=== PATIENT | female | born 1930 | race African-American/Black ===

== ENCOUNTER 2020-07-11 11:33 | Inpatient (IN) | payer MEDICARE ==
[~2020-07-11] VITALS: Ht 160 cm; Wt 41.7 kg
[2020-07-11] MEDS ORDERED: ONDANSETRON HCL 4MG/2ML INJ IV ONE (12:00)
[2020-07-11 12:14] LABS: HEMATOCRIT. 44.6 % (36.0-48.0); HEMOGLOBIN. 14.9 g/dL (12.0-16.0); MEAN CORPUSCULAR HEMOGLOBIN 26.7 pg (28.0-32.0); MEAN CORPUSCULAR VOLUME 80.2 fL (81.0-99.0); MEAN PLATELET VOLUME 8.8 fl (7.4-10.4); PLATELET 235 x1000/uL (130-400); RED BLOOD CELL COUNT 5.56 mill/uL (4.2-5.4); RED CELL DISTRIBUTION WIDTH 15.2 % (11.6-14.6)
[2020-07-11 12:18] LABS: CHLORIDE 99 mEq/L (98-107)
[2020-07-11 12:21] LABS: INR 1.1; PROTHROMBIN TIME 11.8 sec (9.6-11.0)
[2020-07-11] MEDS ORDERED: BARIUM SULFATE(VOLUMEN) 450 ML ORAL.SUSP ONE (12:27)
[2020-07-11 13:00] LABS: PLATELET ESTIMATE NORMAL
[2020-07-11] MEDS ORDERED: DEXT 5%/0.45% NACL 1000ML 1,000 ML IV SCH (13:15)
[2020-07-11] MEDS ORDERED: ONDANSETRON HCL 4MG/2ML INJ IV PRN (13:15)
[2020-07-11] MEDS: IPRATROPIUM/ALBUTEROL 0.5-3(2.5)MG/3ML NEB HHN SCH ×3 (13:30→21:22)
[2020-07-11 15:00] VITALS: BP_SYST 169; BP_DIAS 91; BP_DIAS 96
[2020-07-11 15:16] LABS: CLARITY URINE CLEAR (CLEAR); COLOR URINE YELLOW (YELLOW); KETONES URINE NEGATIVE (NEGATIVE); LEUKOCYTE ESTERASE URINE NEGATIVE (NEGATIVE); NITRITE URINE NEGATIVE (NEGATIVE); OCCULT BLOOD URINE NEGATIVE (NEGATIVE); PROTEIN URINE TRACE (NEGATIVE); SPECIFIC GRAVITY URINE 1.015 (1.005-1.030)
[2020-07-11] MEDS ORDERED: NA PHOS,M-B/NA PHOS,DI-BA ENEMA 118ML PR NR (17:00)
[2020-07-11] MEDS: LIDOCAINE 5% PATCH TOP SCH (17:00)
[2020-07-11] MEDS ORDERED: KETOROLAC 15MG/ML VIAL IV PRN (17:00)
[2020-07-11] MEDS ORDERED: LACTULOSE 20G/30ML UDC PO NR (17:00)
[2020-07-11] MEDS ORDERED: BISACODYL 5MG TABLET PO PRN (17:00)
[2020-07-11] MEDS ORDERED: ATROV IH (17:06)
[2020-07-11] MEDS ORDERED: ACET-2708 MT (17:06)
[2020-07-11] MEDS ORDERED: BUDE6.9H INH (17:06)
[2020-07-11] MEDS ORDERED: [UNRECOGNIZED DRUG - CODE] PO (17:06)
[2020-07-11] MEDS ORDERED: DICL100G31 TP (17:06)
[2020-07-11] MEDS: ACETAMINOPHEN 325MG TABLET PO PRN (17:22)
[2020-07-11] MEDS ORDERED: SORBITOL 70% SOLN 30ML PO NR (19:45)
[2020-07-11 20:00] VITALS: BP 147/79
[2020-07-11] MEDS: SODIUM CHLORIDE 0.9% INJ 3ML FLUSH IVF SCH ×2 (21:15→21:34)
[2020-07-11] MEDS: DEXT 5%/0.9% NACL 1,000 ML IV SCH (21:15)
[2020-07-12] VITALS: BP 147/79
[2020-07-12] MEDS: IPRATROPIUM/ALBUTEROL 0.5-3(2.5)MG/3ML NEB HHN SCH ×6 (01:00→21:12)
[2020-07-12] MEDS: ACETAMINOPHEN 325MG TABLET PO PRN ×3 (03:48→21:27)
[2020-07-12 04:00] VITALS: BP 114/90
[2020-07-12] MEDS ORDERED: SORBITOL 70% SOLN 30ML PO NR (06:00)
[2020-07-12] MEDS: SODIUM CHLORIDE 0.9% INJ 3ML FLUSH IVF SCH ×3 (06:15→21:27)
[2020-07-12 07:03] LABS: HEMATOCRIT. 40.1 % (36.0-48.0); HEMOGLOBIN. 13.5 g/dL (12.0-16.0); MEAN CORPUSCULAR HEMOGLOBIN 26.8 pg (28.0-32.0); MEAN CORPUSCULAR VOLUME 79.5 fL (81.0-99.0); MEAN PLATELET VOLUME 9.3 fl (7.4-10.4); PLATELET 202 x1000/uL (130-400); RED BLOOD CELL COUNT 5.05 mill/uL (4.2-5.4); RED CELL DISTRIBUTION WIDTH 15.4 % (11.6-14.6)
[2020-07-12 07:15] LABS: PHOSPHORUS 3.1 mg/dL (2.5-4.9)
[2020-07-12 08:00] VITALS: BP 138/75
[2020-07-12 08:51] LABS: CHLORIDE 99 mEq/L (98-107)
[2020-07-12] MEDS: LIDOCAINE 5% PATCH TOP SCH (09:00)
[2020-07-12] MEDS: POLYETHYLENE GLYCOL 3350 (17GM) 1 DOSE PACK PO SCH (09:44)
[2020-07-12 12:00] VITALS: BP_SYST 134; BP_SYST 99; BP_DIAS 52; BP_DIAS 68
[2020-07-12] MEDS: DEXT 5%/0.9% NACL 1,000 ML IV SCH (13:09)
[2020-07-12] MEDS ORDERED: SORBITOL 70% SOLN 30ML PO PRN (14:45)
[2020-07-12 16:00] VITALS: BP 153/86
[2020-07-12 17:45] LABS: PLATELET ESTIMATE NORMAL
[2020-07-12 20:00] VITALS: BP 146/73
[2020-07-13] VITALS: BP 133/65
[2020-07-13] MEDS: IPRATROPIUM/ALBUTEROL 0.5-3(2.5)MG/3ML NEB HHN SCH ×6 (01:26→21:56)
[2020-07-13] MEDS: ACETAMINOPHEN 325MG TABLET PO PRN ×3 (03:30→18:34)
[2020-07-13 04:00] VITALS: BP 131/68
[2020-07-13] MEDS: SODIUM CHLORIDE 0.9% INJ 3ML FLUSH IVF SCH ×3 (06:00→21:18)
[2020-07-13 07:04] LABS: BASOPHILS % 0.1 % (0.0-2.0); CHLORIDE 97 mEq/L (98-107); EOSINOPHILS % 0.3 % (0.0-5.0); HEMOGLOBIN. 13.1 g/dL (12.0-16.0); LYMPHOCYTES % 7.1 % (20.0-50.0); MEAN CORPUSCULAR HEMOGLOBIN 26.7 pg (28.0-32.0); MEAN CORPUSCULAR VOLUME 79.3 fL (81.0-99.0); MEAN PLATELET VOLUME 8.9 fl (7.4-10.4); MONOCYTES % 10.4 % (2.0-8.0); NEUTROPHILS % 82.1 % (40.0-76.0); PLATELET 200 x1000/uL (130-400); RED BLOOD CELL COUNT 4.92 mill/uL (4.2-5.4); RED CELL DISTRIBUTION WIDTH 15.2 % (11.6-14.6)
[2020-07-13 08:00] VITALS: BP 157/80
[2020-07-13] MEDS ORDERED: ENOXAPARIN 30MG/0.3ML SYR SUBCUT SCH (09:00)
[2020-07-13] MEDS: POLYETHYLENE GLYCOL 3350 (17GM) 1 DOSE PACK PO SCH (09:00)
[2020-07-13] MEDS: DEXT 5%/0.9% NACL 1,000 ML IV SCH (09:23)
[2020-07-13] MEDS ORDERED: GADOTERATE MEGLUMINE 5 MMOL/10 ML VIAL IV ONE (10:50)
[2020-07-13 12:00] VITALS: BP 142/64
[2020-07-13 12:10] LABS: BG BASE EXCESS 3.9 mmol/L (-2.0-2.0); BG CARBOXYHEMOGLOBIN 0.9 % (0.5-1.5); BG FRACTION INSPIRED OXYGEN 32; BG HCO3 ACT 29.9 mmol/L (22.0-26.0); BG METHEMOGLOBIN 0.3 % (0.0-1.5); BG OXYHEMOGLOBIN 97.8 % (94.0-97.0); BG PCO2 50.7 mmHg (35.0-45.0); BG PH 7.389 (7.350-7.450); BG PO2 166.2 mmHg (75.0-100.0); BG SAMPLE SITE RIGHT RADIAL; BG TOTAL HEMOGLOBIN 13.8 g/dL (12.0-18.0); BG VENT MODE NASAL CANNULA
[2020-07-13] MEDS: BUDESONIDE 0.5MG/2ML NEB HHN SCH ×2 (12:15→21:55)
[2020-07-13] MEDS ORDERED: IOHEXOL-300 100 ML BOTTLE ONE (14:34)
[2020-07-13 16:00] VITALS: BP 147/83
[2020-07-13 20:00] VITALS: BP 139/72
[2020-07-14] VITALS: BP 129/80
[2020-07-14] MEDS: ACETAMINOPHEN 325MG TABLET PO PRN ×3 (01:04→23:00)
[2020-07-14] MEDS: POLYVINYL ALCOHOL OPHTH DROPS 15ML BOTHEYE SCH ×4 (01:18→18:00)
[2020-07-14 04:00] VITALS: BP 118/70
[2020-07-14] MEDS: IPRATROPIUM/ALBUTEROL 0.5-3(2.5)MG/3ML NEB HHN SCH ×5 (04:00→21:10)
[2020-07-14] MEDS: DEXT 5%/0.9% NACL 1,000 ML IV SCH (05:24)
[2020-07-14] MEDS: DORZOLAMIDE 2% OPHTH 10 ML BOTTLE BOTHEYE SCH ×4 (05:25→21:23)
[2020-07-14] MEDS: SODIUM CHLORIDE 0.9% INJ 3ML FLUSH IVF SCH ×3 (05:25→21:23)
[2020-07-14 06:57] LABS: BASOPHILS % 0.2 % (0.0-2.0); EOSINOPHILS % 0.4 % (0.0-5.0); MEAN CORPUSCULAR HEMOGLOBIN 26.5 pg (28.0-32.0); MEAN CORPUSCULAR VOLUME 79.5 fL (81.0-99.0); MEAN PLATELET VOLUME 9.2 fl (7.4-10.4); MONOCYTES % 10.6 % (2.0-8.0); NEUTROPHILS % 80.8 % (40.0-76.0); PLATELET 219 x1000/uL (130-400); RED BLOOD CELL COUNT 4.91 mill/uL (4.2-5.4); RED CELL DISTRIBUTION WIDTH 15.2 % (11.6-14.6)
[2020-07-14 07:00] LABS: CHLORIDE 100 mEq/L (98-107)
[2020-07-14] MEDS: BUDESONIDE 0.5MG/2ML NEB HHN SCH ×2 (07:12→21:10)
[2020-07-14 08:33] VITALS: BP 153/72
[2020-07-14] MEDS: POLYETHYLENE GLYCOL 3350 (17GM) 1 DOSE PACK PO SCH (09:00)
[2020-07-14 12:12] VITALS: BP 137/79
[2020-07-14 15:48] VITALS: BP 130/69
[2020-07-14] MEDS ORDERED: MAGNESIUM/ALUMINUM HYDROXIDE/SIMETHICONE 30ML UDC PO PRN (19:45)
[2020-07-14] MEDS ORDERED: SIMETHICONE 80MG TABLET CHEW PO PRN (19:45)
[2020-07-14 20:00] VITALS: BP 128/70
[2020-07-15] VITALS (22 sets, daily range): BP systolic 115–151; BP diastolic 36–87
[2020-07-15] MEDS: DEXT 5%/0.9% NACL 1,000 ML IV SCH ×2 (01:05→21:25)
[2020-07-15] MEDS: POLYVINYL ALCOHOL OPHTH DROPS 15ML BOTHEYE SCH ×5 (01:09→23:07)
[2020-07-15] MEDS: IPRATROPIUM/ALBUTEROL 0.5-3(2.5)MG/3ML NEB HHN SCH ×3 (05:01→21:13)
[2020-07-15] MEDS: SODIUM CHLORIDE 0.9% INJ 3ML FLUSH IVF SCH ×3 (05:34→22:00)
[2020-07-15 07:02] LABS: BASOPHILS % 0.4 % (0.0-2.0); EOSINOPHILS % 0.5 % (0.0-5.0); HEMATOCRIT. 38.8 % (36.0-48.0); LYMPHOCYTES % 8.6 % (20.0-50.0); MEAN CORPUSCULAR VOLUME 80.5 fL (81.0-99.0); MEAN PLATELET VOLUME 9.5 fl (7.4-10.4); MONOCYTES % 11.6 % (2.0-8.0); NEUTROPHILS % 78.9 % (40.0-76.0); PLATELET 206 x1000/uL (130-400); RED BLOOD CELL COUNT 4.82 mill/uL (4.2-5.4); RED CELL DISTRIBUTION WIDTH 15.7 % (11.6-14.6)
[2020-07-15 07:33] LABS: CHLORIDE 105 mEq/L (98-107)
[2020-07-15] MEDS ORDERED: SODIUM BICARBONATE 4% (2.4MEQ) 5ML VIAL IV ONE (07:56)
[2020-07-15] MEDS ORDERED: FENTANYL CITRATE/PF 50MCG/ML 2ML VIAL ONE (07:56)
[2020-07-15] MEDS ORDERED: LIDOCAINE HCL 1% 20ML VIAL (Pyxis) INJ ONE (07:56)
[2020-07-15 08:12] LABS: A/G RATIO 1.6 (0.7-1.7); ALBUMIN 3.1 g/dL (2.9-4.4); ALPHA-1-GLOBULIN 0.2 g/dL (0.0-0.4); ALPHA-2-GLOBULIN 0.5 g/dL (0.4-1.0); BETA GLOBULIN 0.7 g/dL (0.7-1.3); GAMMA GLOBULINS 0.5 g/dL (0.4-1.8); GLOBULIN TOTAL 1.9 g/dL (2.2-3.9); M-SPIKE Not Observed g/dL (Not Observed)
[2020-07-15] MEDS: POLYETHYLENE GLYCOL 3350 (17GM) 1 DOSE PACK PO SCH (09:00)
[2020-07-15 09:07] LABS: IMMUNOGLOBULIN A 144 mg/dL (64-422); IMMUNOGLOBULIN G 530 mg/dL (586-1602); IMMUNOGLOBULIN M 27 mg/dL (26-217)
[2020-07-15] MEDS: ACETAMINOPHEN 325MG TABLET PO PRN ×2 (13:30→22:08)
[2020-07-15] MEDS: LATANOPROST 0.005% OPHTH DROPS 2.5ML BOTHEYE SCH (21:00)
[2020-07-15] MEDS: BUDESONIDE 0.5MG/2ML NEB HHN SCH (21:13)
[2020-07-16] VITALS: BP 115/60
[2020-07-16] MEDS: IPRATROPIUM/ALBUTEROL 0.5-3(2.5)MG/3ML NEB HHN SCH ×4 (01:14→12:40)
[2020-07-16 04:00] VITALS: BP 138/69
[2020-07-16] MEDS: POLYVINYL ALCOHOL OPHTH DROPS 15ML BOTHEYE SCH ×4 (05:53→23:08)
[2020-07-16 06:35] LABS: BASOPHILS % 0.3 % (0.0-2.0); EOSINOPHILS % 0.3 % (0.0-5.0); HEMATOCRIT. 39.3 % (36.0-48.0); LYMPHOCYTES % 9.5 % (20.0-50.0); MEAN CORPUSCULAR HEMOGLOBIN 26.7 pg (28.0-32.0); MEAN CORPUSCULAR VOLUME 80.8 fL (81.0-99.0); MEAN PLATELET VOLUME 8.7 fl (7.4-10.4); MONOCYTES % 11.3 % (2.0-8.0); NEUTROPHILS % 78.6 % (40.0-76.0); PLATELET 207 x1000/uL (130-400); RED BLOOD CELL COUNT 4.87 mill/uL (4.2-5.4); RED CELL DISTRIBUTION WIDTH 15.3 % (11.6-14.6)
[2020-07-16 06:42] LABS: CHLORIDE 103 mEq/L (98-107)
[2020-07-16 08:00] VITALS: BP 140/83
[2020-07-16] MEDS: POLYETHYLENE GLYCOL 3350 (17GM) 1 DOSE PACK PO SCH (09:56)
[2020-07-16] MEDS: BUDESONIDE 0.5MG/2ML NEB HHN SCH ×2 (10:16→20:46)
[2020-07-16 12:00] VITALS: BP 158/86
[2020-07-16] MEDS: SODIUM CHLORIDE 0.9% INJ 3ML FLUSH IVF SCH ×2 (14:00→21:45)
[2020-07-16 16:00] VITALS: BP 134/62
[2020-07-16] MEDS ORDERED: ALBUTEROL (0.083%) 2.5MG/3ML NEB HHN PRN (16:15)
[2020-07-16] MEDS: DEXT 5%/0.9% NACL 1,000 ML IV SCH (19:09)
[2020-07-16 20:00] VITALS: BP 135/61
[2020-07-16] MEDS: ALBUTEROL (0.083%) 2.5MG/3ML NEB HHN SCH (20:00)
[2020-07-16] MEDS: LATANOPROST 0.005% OPHTH DROPS 2.5ML BOTHEYE SCH (20:14)
[2020-07-16] MEDS: SORBITOL 70% SOLN 30ML PO PRN (21:46)
[2020-07-16] MEDS ORDERED: THROAT LOZENGES-BENZOCAINE/MENTH/CETYLPYRD CL LOZENGES MM PRN (22:30)
[2020-07-17] VITALS: BP 128/60
[2020-07-17 04:00] VITALS: BP 128/66
[2020-07-17] MEDS: ALBUTEROL (0.083%) 2.5MG/3ML NEB HHN SCH ×3 (04:35→07:50)
[2020-07-17] MEDS: POLYVINYL ALCOHOL OPHTH DROPS 15ML BOTHEYE SCH ×3 (05:29→16:52)
[2020-07-17] MEDS: ACETAMINOPHEN 325MG TABLET PO PRN ×3 (06:15→21:33)
[2020-07-17 08:00] VITALS: BP 161/74
[2020-07-17] MEDS: SORBITOL 70% SOLN 30ML PO PRN (10:46)
[2020-07-17] MEDS: POLYETHYLENE GLYCOL 3350 (17GM) 1 DOSE PACK PO SCH (10:47)
[2020-07-17 12:00] VITALS: BP 155/75
[2020-07-17] MEDS: SORBITOL 70% SOLN 30ML PO SCH ×2 (13:00→17:04)
[2020-07-17 16:00] VITALS: BP 149/86
[2020-07-17] MEDS ORDERED: MINERAL OIL ENEMA 133ML PR NR (16:30)
[2020-07-17] MEDS: SODIUM CHLORIDE 0.9% INJ 3ML FLUSH IVF SCH ×2 (17:04→22:00)
[2020-07-17] MEDS: DEXT 5%/0.9% NACL 1,000 ML IV SCH (17:04)
[2020-07-17] MEDS ORDERED: DEXAMETHASONE 10 MG/ML VIAL IV NR (17:30)
[2020-07-17 20:00] VITALS: BP 159/76
[2020-07-17] MEDS: LATANOPROST 0.005% OPHTH DROPS 2.5ML BOTHEYE SCH (20:52)
[2020-07-18] VITALS: BP 152/75
[2020-07-18 04:00] VITALS: BP 134/58
[2020-07-18] MEDS: ACETAMINOPHEN 325MG TABLET PO PRN (05:00)
[2020-07-18] MEDS: POLYVINYL ALCOHOL OPHTH DROPS 15ML BOTHEYE SCH ×4 (05:22→18:00)
[2020-07-18] MEDS ORDERED: MINERAL OIL ENEMA 133ML PR PRN (06:00)
[2020-07-18] MEDS: SODIUM CHLORIDE 0.9% INJ 3ML FLUSH IVF SCH ×2 (06:41→13:12)
[2020-07-18 08:00] VITALS: BP 150/73
[2020-07-18] MEDS: POLYETHYLENE GLYCOL 3350 (17GM) 1 DOSE PACK PO SCH (09:34)
[2020-07-18] MEDS: SORBITOL 70% SOLN 30ML PO SCH ×3 (09:34→18:47)
[2020-07-18] MEDS: METHYLPREDNISOLONE 4MG TABLET PO SCH ×2 (09:34→18:47)
[2020-07-18] MEDS: DEXT 5%/0.9% NACL 1,000 ML IV SCH (09:35)
[2020-07-18 16:00] VITALS: BP 159/78
[2020-07-18 18:26] VITALS: BP 159/78
== END 2020-07-18 20:45 | disposition home health service (06) | DRG 542 ==
LOC: ER 11:33 → 8WST 12:16 → ENRESERV 14:01
PROVIDERS: ADMIT Internal Medicine Critical Care Medicine; ATTEND Internal Medicine Critical Care Medicine
PROC: 00JV3ZZ Inspection of Spinal Cord, Percutaneous Approach (ICD-10-PCS; principal; 2020-07-15)
DX: C79.51 Secondary malignant neoplasm of bone (principal); J96.20 Acute and chronic respiratory failure, unspecified whether with hypoxia or hypercapnia; K56.7 Ileus, unspecified; M84.48XA Pathological fracture, other site, initial encounter for fracture; R64 Cachexia; E87.1 Hypo-osmolality and hyponatremia; G82.20 Paraplegia, unspecified; E44.1 Mild protein-calorie malnutrition; M51.04 Intervertebral disc disorders with myelopathy, thoracic region; M51.06 Intervertebral disc disorders with myelopathy, lumbar region; Z68.1 Body mass index [BMI] 19.9 or less, adult; K59.00 Constipation, unspecified; R11.0 Nausea; M81.0 Age-related osteoporosis without current pathological fracture; N39.41 Urge incontinence; Z20.822 Contact with and (suspected) exposure to COVID-19; L89.156 Pressure-induced deep tissue damage of sacral region; J43.9 Emphysema, unspecified; D72.829 Elevated white blood cell count, unspecified; F17.210 Nicotine dependence, cigarettes, uncomplicated; I10 Essential (primary) hypertension; I25.10 Atherosclerotic heart disease of native coronary artery without angina pectoris; M19.90 Unspecified osteoarthritis, unspecified site; M48.061 Spinal stenosis, lumbar region without neurogenic claudication; M51.16 Intervertebral disc disorders with radiculopathy, lumbar region; M43.16 Spondylolisthesis, lumbar region; Z96.1 Presence of intraocular lens; Z88.0 Allergy status to penicillin; Z86.011 Personal history of benign neoplasm of the brain; Z88.5 Allergy status to narcotic agent; Z79.51 Long term (current) use of inhaled steroids
CPT/HCPCS: 36415; 36600; 71045; 71260; 72156; 72157; 72158; 74176; 77012; 80048; 80053; 81003; 82375; 82378; 82784; 82805; 83615; 83735; 84100; 84155; 84165; 84443; 85025; 86304; 86334; 87426; 88172; 88173; 93005; 94640; 97110; 97162; 97530; 99152; 99153; 99285; A9577; C1893; J1650; J2405; J3010; J3490; J7042; J7509; J7626; Q9967; G0500